=== PATIENT | female | born 1940 | race Caucasian/White ===

== ENCOUNTER 2025-02-25 06:24 | Emergency (ER) | payer MEDICARE, OTHER ==
[~2025-02-25] VITALS: Ht 165.1 cm; Wt 94.3 kg
[2025-02-25 06:28] VITALS: PULSE 128; RESP 30; O2SAT 100
[2025-02-25] MEDS ORDERED: 0.9% SODIUM CHLORIDE 10 ML SYRINGE IVP PRN (06:30)
[2025-02-25] MEDS: NITROGLYCERIN 0.4 MG SUBLINGUAL TABLET #25 SL ONE (06:47)
[2025-02-25 06:49] LABS: PLATELET COUNT (AUTO) 213 K/uL (150-450); RED BLOOD CELL COUNT(AUTO) 3.78 MIL/uL (4.00-5.20); RED CELL DISTRIBUTION WIDTH 14.3 % (11.5-14.5); WHITE BLOOD COUNT (AUTO) 8.9 K/uL (4.5-11.0)
[2025-02-25 06:49] LABS: ABG A-A DIFF O2 213.5 mmHg (10-20.0); ABG BASE EXCESS -2.3 mmol/L (-2.0-3.0); ABG CARBOXYHEMOGLOBIN 0.5 % (0.5-1.5); ABG HCO3 23.0 mmol/L (21.0-28.0); ABG METHEMOGLOBIN 0.7 % (0.0-1.5); ABG OXYGEN CONTENT 17.2 mL/dL (15.0-23.0); ABG OXYGEN SATURATION 99.7 % (94.0-98.0); ABG OXYHEMOGLOBIN 98.5 % (94.0-98.0); ABG PCO2 36 mmHg (32.0-45.0); ABG PH 7.415 (7.350-7.450); ABG TOTAL HEMOGLOBIN 11.5 G/dL (12.0-16.0); ALLEN TEST, BLOOD GAS Positive; FRACTIONATED INSPIRED OXYGEN 100.0 % (21-100.0); O2 DEVICE,BLOOD GAS BIPAP (ROOM AIR); PATIENT RATE, BG 23.0 min.; PO2, ARTERIAL BG 464.0 mmHg (83.0-108.0); SET RATE, BG 10.0 min.; SITE, BLOOD GAS LFT RADIAL; SOURCE, BLOOD GAS ARTERIAL; SPONTANEOUS VT, BG 500 ml; TEMPERATURE, FAHRENHEIT, BG 98.6 FAHREN (96.0-98.6)
[2025-02-25 06:58] LABS: COVID AG,FIA SOURCE NASAL SWAB
[2025-02-25 06:58] LABS: CALCIUM, TOTAL 8.2 mg/dL (8.8-10.5); CREATININE 1.19 mg/dL (0.60-1.30); GLOMERULAR FILTR. RATE CALC 43 mL/min (>60); GLUCOSE,RANDOM 155 mg/dL (70-110); SODIUM SERUM 137 mmol/L (136-145); UREA NITROGEN, BLOOD 29 mg/dL (7-18)
[2025-02-25] MEDS ORDERED: ASPI-1444 PO (06:59)
[2025-02-25] MEDS ORDERED: ATOR40TA28 PO (06:59)
[2025-02-25] MEDS ORDERED: CHOL25TA4 PO (06:59)
[2025-02-25] MEDS ORDERED: LEVO100 PO (06:59)
[2025-02-25] MEDS ORDERED: FURO20TA5 PO (06:59)
[2025-02-25] MEDS ORDERED: LISI-894 PO (06:59)
[2025-02-25] MEDS ORDERED: CYAN500T56 PO (06:59)
[2025-02-25] MEDS ORDERED: LACT1TAB4 PO (06:59)
[2025-02-25] MEDS ORDERED: ALEN70TA65 PO (06:59)
[2025-02-25] MEDS ORDERED: ATEN-72 PO (06:59)
[2025-02-25] MEDS ORDERED: CARB-92 PO (06:59)
[2025-02-25] MEDS ORDERED: FLUT16SP NASAL (06:59)
[2025-02-25 07:02] LABS: ASPARTATE AMINOTRANSFERASE 36 U/L (15-37); TOTAL PROTEIN, SERUM 7.4 g/dL (6.4-8.2)
[2025-02-25 07:04] LABS: LACTIC ACID 1.3 mmol/L (0.4-2.0)
[2025-02-25 07:08] LABS: TROPONIN I-HIGH SENSITIVITY 828 ng/L (<51)
[2025-02-25] MEDS: ASPIRIN 81 MG CHEWABLE TABLET PO ONE (07:20)
[2025-02-25 07:43] LABS: APPEARANCE,URINE CLEAR (CLEAR); GLUCOSE, URINE (UA) NEGATIVE (NEGATIVE); LEUKOCYTE ESTERASE ,URINE NEGATIVE (NEGATIVE); NITRATE,URINE POSITIVE (NEGATIVE); OCCULT BLOOD,URINE NEGATIVE (NEGATIVE); SPECIFIC GRAVITIY, URINE 1.024 (1.003-1.030)
[2025-02-25] MEDS: FUROSEMIDE 40 MG/4 ML VIAL IVP ONE (07:49)
[2025-02-25] MEDS: AZITHROMYCIN 500 MG/NS 250 ML IV ONE (07:56)
[2025-02-25] MEDS: CefTRIAXone 1 GM/DEXTROSE 50 ML IV ONE (07:56)
[2025-02-25 08:00] LABS: SQUAMOUS EPITHELIAL CELL,UR Few /LPF (None Seen)
[2025-02-25 08:20] LABS: SARS-COV2 (COVID) ANTIGEN,FIA Negative (Negative)
[2025-02-25 08:27] LABS: INFLUENZA TYPE A NEGATIVE FOR TYPE A (NEGATIVE); INFLUENZA TYPE B NEGATIVE FOR TYPE B (NEGATIVE)
[2025-02-25 11:01] VITALS: BP 151/70; PULSE 96; RESP 20; TEMP 99.1; O2SAT 99
== END 2025-02-25 11:55 | disposition short-term general hospital (02) ==
LOC: EMS 06:58
DX: I11.0 Hypertensive heart disease with heart failure (principal); I50.9 Heart failure, unspecified; N39.0 Urinary tract infection, site not specified; J44.9 Chronic obstructive pulmonary disease, unspecified; Z87.01 Personal history of pneumonia (recurrent); Z20.822 Contact with and (suspected) exposure to COVID-19
CPT/HCPCS: 99291; 96365; 96375; 87426; 80048; 80076; 81001; 83605; 83880; 84443; 84484; 85025; 85610; 87040; 87077; 87086; 87804; 82805; 94660; 71045; 93005; 96368; 84145; 36415; J0456; J0696; J1938; 87186; 94760